=== PATIENT | female | born 1930 | race Caucasian/White ===

== ENCOUNTER 2018-06-30 10:02 | Outpatient (CLI) | payer MEDICARE ==
--- NOTE | 2018-06-30 11:23 | CT ---
CT HEAD NONCONTRAST: History: Dizziness. FINDINGS: At the right frontal subclavian position, an oval heterogeneous peripherally partially calcified extr aaxial mass is of density slightly less than donaldson matter. It has a wide abutment of the dura at 2.1 c m. The mass is 4.2 cm x 3.9 cm diameters on the axial images. It minimally effaces the right side of the anterior falx. Moderate effacement of the right frontal medial gyri. Minimal effacement of the fr ontal horn right lateral ventricle. No acute intracranial hemorrhage or infarct. Visualized paranasal sinuses remain well aerated. Mild d iffuse cortical atrophy. IMPRESSION: 1. Large partially calcified dural based right frontal mass. 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 2. Please consider neurosurgical evaluation to correlate with clinical findings. POS: ANISH
== END 2018-06-30 10:03 | disposition home or self-care (01) ==
LOC: BICCT 10:02
PROVIDERS: ATTEND Internal Medicine Geriatric Medicine
DX: R42 Dizziness and giddiness (principal); R22.0 Localized swelling, mass and lump, head
CPT/HCPCS: 70450